=== PATIENT | female | born 1985 | race Asian ===

== ENCOUNTER 2019-08-24 10:38 | Emergency (ER) | payer OTHER ==
[~2019-08-24] VITALS: Ht 177.8 cm; Wt 90.7 kg
[2019-08-24 10:46] VITALS: Ht 177.8 cm; Wt 90.7 kg
[2019-08-24 13:22] VITALS: BP 150/90
== END 2019-08-24 13:22 | disposition home or self-care (01) ==
LOC: ED 10:38
DX: S93.402A Sprain of unspecified ligament of left ankle, initial encounter (principal); Z91.018 Allergy to other foods; X58.XXXA Exposure to other specified factors, initial encounter; Y93.89 Activity, other specified; Y92.89 Other specified places as the place of occurrence of the external cause; Y99.8 Other external cause status
CPT/HCPCS: Q0092

== ENCOUNTER 2019-09-01 11:20 | Emergency (ER) | payer OTHER ==
[~2019-09-01] VITALS: Ht 165.1 cm; Wt 90.7 kg
[2019-09-01 11:27] VITALS: Ht 165.1 cm; Wt 90.7 kg
[2019-09-01 12:35] VITALS: BP 150/79
== END 2019-09-01 14:29 | disposition home or self-care (01) ==
LOC: ED 11:20
DX: S99.912A Unspecified injury of left ankle, initial encounter (principal); Z91.018 Allergy to other foods; W01.0XXA Fall on same level from slipping, tripping and stumbling without subsequent striking against object, initial encounter; Y93.89 Activity, other specified; Y92.89 Other specified places as the place of occurrence of the external cause; Y99.8 Other external cause status
CPT/HCPCS: J1885; Q0092